=== PATIENT | female | born 1985 | race Asian ===

== ENCOUNTER 2016-06-05 19:46 | Emergency (ER) | payer OTHER ==
[~2016-06-05] VITALS: Ht 165.1 cm; Wt 58.1 kg
[~2016-06-05 19:46] MED LIST: AMOX500T5 PO; MECL25TA84 PO
[2016-06-05 22:49] VITALS: BP 136/40; TEMP 98.6
== END 2016-06-05 22:55 | disposition home or self-care (01) ==
LOC: ED 19:46
DX: J02.0 Streptococcal pharyngitis (principal); M79.1 Myalgia
CPT/HCPCS: 81000; 81025; 87804; 87880; 96372; 96373; 99283; J0561; J1885; J2405

== ENCOUNTER 2016-08-20 16:38 | Outpatient (CLI) | payer OTHER | END 2016-08-20 18:00 | disposition home or self-care (01) | LOC: CT 16:38 | DX: N20.0 Calculus of kidney (principal) ==

== ENCOUNTER 2016-12-16 21:05 | Emergency (ER) | payer OTHER ==
[~2016-12-16] VITALS: Ht 167.6 cm; Wt 64.4 kg
[2016-12-16 22:08] LABS: PLATELET COUNT 288 K/uL (152-353)
[2016-12-16 22:20] LABS: POTASSIUM 3.8 mmol/L (3.6-5.2); SODIUM 133 mmol/L (136-145)
[2016-12-16 22:45] VITALS: BP 121/73; TEMP 98.5
== END 2016-12-16 22:50 | disposition home or self-care (01) ==
LOC: ED 21:05
DX: K52.89 Other specified noninfective gastroenteritis and colitis (principal)
CPT/HCPCS: 36415; 80053; 85027; 96360; 96374; 96375; 99284; J2405

== ENCOUNTER 2017-04-02 05:07 | Emergency (ER) | payer OTHER ==
[~2017-04-02] VITALS: Ht 165.1 cm; Wt 65.3 kg
[2017-04-02 06:22] LABS: PLATELET COUNT 223 K/uL (152-353)
[2017-04-02 06:26] LABS: POTASSIUM 3.5 mmol/L (3.6-5.2); SODIUM 136 mmol/L (136-145)
[2017-04-02 06:47] LABS: PARTIAL THROMBOPLASTIN TIME 22.9 SECONDS (24.5-33.6)
[2017-04-02 07:12] VITALS: BP 149/89; TEMP 98.6
== END 2017-04-02 07:12 | disposition home or self-care (01) ==
LOC: ED 05:07
DX: M94.0 Chondrocostal junction syndrome [Tietze] (principal); R00.0 Tachycardia, unspecified
CPT/HCPCS: 36415; 80053; 81000; 82550; 84484; 85027; 85610; 85730; 93005; 96374; 99283; J1885

== ENCOUNTER 2017-12-21 13:27 | Emergency (ER) | payer OTHER ==
[~2017-12-21] VITALS: Ht 167.6 cm; Wt 61.2 kg
[2017-12-21 14:00] VITALS: TEMP 97.9
[2017-12-21 15:17] LABS: PLATELET COUNT 246 K/uL (152-353)
[2017-12-21 15:24] LABS: POTASSIUM 3.3 mmol/L (3.6-5.2)
[2017-12-21 16:05] VITALS: BP 112/68
== END 2017-12-21 16:05 | disposition home or self-care (01) ==
LOC: ED 13:27
PROVIDERS: Family Medicine
DX: J01.80 Other acute sinusitis (principal); J30.89 Other allergic rhinitis
CPT/HCPCS: 36415; 80053; 85027; 87804; 99283

== ENCOUNTER 2018-06-20 12:30 | Emergency (ER) | payer OTHER ==
[~2018-06-20] VITALS: Ht 167.6 cm; Wt 64.4 kg
[2018-06-20 13:54] LABS: PLATELET COUNT 255 K/uL (152-353)
[2018-06-20 14:06] LABS: POTASSIUM 3.4 mmol/L (3.6-5.2)
[2018-06-20 15:08] VITALS: BP 136/78; TEMP 98
== END 2018-06-20 15:10 | disposition home or self-care (01) ==
LOC: ED 12:30
PROVIDERS: Family Medicine
DX: R10.84 Generalized abdominal pain (principal); N89.8 Other specified noninflammatory disorders of vagina
CPT/HCPCS: 80053; 81000; 85027; 87210; 87490; 87590; 99283

== ENCOUNTER 2018-09-30 23:17 | Emergency (ER) | payer OTHER ==
[~2018-09-30] VITALS: Ht 167.6 cm; Wt 65.8 kg
[2018-10-01 01:37] VITALS: BP 131/86; TEMP 98.2
== END 2018-10-01 01:41 | disposition home or self-care (01) ==
LOC: ED 23:17
DX: K21.9 Gastro-esophageal reflux disease without esophagitis (principal)
CPT/HCPCS: 87651; 96372; 99283; J1610

== ENCOUNTER 2022-04-25 18:30 | Emergency (ER) | payer OTHER ==
[~2022-04-25] VITALS: Ht 167.6 cm; Wt 76.2 kg
[2022-04-25 18:32] VITALS: BP 138/85; TEMP 99.7
[2022-04-25 19:34] LABS: PLATELET COUNT 271 K/uL (152-353)
[2022-04-25 19:46] LABS: POTASSIUM 3.3 mmol/L (3.6-5.2)
== END 2022-04-25 20:08 | disposition home or self-care (01) ==
LOC: ED 18:30
PROVIDERS: Emergency Medicine
DX: N12 Tubulo-interstitial nephritis, not specified as acute or chronic (principal)
CPT/HCPCS: 36415; 80053; 81000; 85027; 87077; 87086; 87088; 87185; 87186; 99283

== ENCOUNTER 2022-11-16 11:17 | Emergency (ER) | payer OTHER ==
[~2022-11-16] VITALS: Ht 167.6 cm; Wt 72.6 kg
[2022-11-16 11:22] VITALS: TEMP 98.1
[2022-11-16 11:49] LABS: PLATELET COUNT 254 K/uL (152-353)
[2022-11-16 11:56] LABS: POTASSIUM 3.5 mmol/L (3.6-5.2)
[2022-11-16 12:52] VITALS: BP 140/75
== END 2022-11-16 12:52 | disposition home or self-care (01) ==
LOC: ED 11:17
PROVIDERS: Family Medicine
DX: O20.0 Threatened abortion (principal); O46.91 Antepartum hemorrhage, unspecified, first trimester; Z3A.01 Less than 8 weeks gestation of pregnancy
CPT/HCPCS: 80053; 81002; 84702; 85027; 86900; 86901; 99284